=== PATIENT | female | born 1995 | race Caucasian/White ===

== ENCOUNTER → 2021-09-04 | Outpatient (CLI) | payer BC, OTHER ==
[~2021-09-04] MED LIST: DIFLUCAN150 MG PO; ELAVIL 50 MG TA50 MG PO; IBUPROFEN600 MG PO; LEVAQUIN750 MG PO; SYNTHROID175 MCG PO; TESSALON PERLE100 MG PO; TRANDATE 100 M100 MG PO; VENTOLIN HFA 66.7 GM INH; ZANTAC 150 MG150 MG PO; ZOFRAN4 MG PO
== END ==
LOC: KOH-I 11:09
DX: M25.511 Pain in right shoulder (principal); W19.XXXA Unspecified fall, initial encounter
CPT/HCPCS: 73000; 73030; 73060

== ENCOUNTER 2022-01-08 13:33 | Emergency (ER) | payer BC, OTHER ==
[2022-01-08 15:05] LABS: HEMOGLOBIN 13.7 gm/dl (12.3-15.3); RED BLOOD COUNT 4.81 M/UL (4.00-5.10); WHITE BLOOD COUNT 7.2 K/UL (4.5-11.0)
[2022-01-08 15:22] LABS: BUN/CREATININE RATIO 12 (0-10)
== END 2022-01-08 19:11 | disposition home or self-care (01) ==
LOC: ER1 13:33
PROVIDERS: Physician Assistant
DX: N99.820 Postprocedural hemorrhage of a genitourinary system organ or structure following a genitourinary system procedure (principal); N93.9 Abnormal uterine and vaginal bleeding, unspecified; Z90.710 Acquired absence of both cervix and uterus; Z88.1 Allergy status to other antibiotic agents; Z88.2 Allergy status to sulfonamides; Y83.8 Other surgical procedures as the cause of abnormal reaction of the patient, or of later complication, without mention of misadventure at the time of the procedure
CPT/HCPCS: 80053; 81001; 83605; 85025; 87040; 99284; Q9967